=== PATIENT | male | born 1970 | race Caucasian/White ===

== ENCOUNTER 2017-10-26 20:10 | Emergency (ER) | payer OTHER | END 2017-10-26 22:21 | disposition home or self-care (01) | LOC: FTE 20:10 | DX: K21.9 Gastro-esophageal reflux disease without esophagitis (principal) | CPT/HCPCS: 99283; Z7502 ==

== ENCOUNTER 2018-08-02 20:22 | Emergency (ER) | payer OTHER | END 2018-08-02 23:40 | disposition home or self-care (01) | LOC: FTE 20:22 | DX: S60.222A Contusion of left hand, initial encounter (principal); L08.9 Local infection of the skin and subcutaneous tissue, unspecified; W18.39XA Other fall on same level, initial encounter; Y92.9 Unspecified place or not applicable | CPT/HCPCS: 99283; Z7502 ==